=== PATIENT | male | born 1975 | race Two or more races ===

== ENCOUNTER → 2020-09-05 | Outpatient (CLI) | payer OTHER ==
[~2020-09-05] MED LIST: GADOTERATE 7.5 MMOL/15ML VIAL. IVP ONE
--- NOTE | 2020-09-05 12:38 | RAD ---
STUDY: MRI of the right knee with and without contrast INDICATION: Right knee pain. COMPARISON: None. TECHNIQUE: Multiplanar MR imaging of the right knee performed both prior to and after the intravenous administration of 13 cc Clariscan. FINDINGS: Menisci: The medial and lateral menisci are intact. Cruciate ligaments: Intact ACL and PCL. Collateral ligaments: Unremarkable medial and lateral collateral ligaments. Normal IT band and retina cula. Tendons: No focal tear or significant tendinosis. 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 Suspected faint superficial chondrosis along the trochlear groove. Lateral compartment: Intact. Medial compartment: Partial thickness chondrosis along the inner margin of the weightbearing medial f emoral condyle Bones: No acute fracture, focally aggressive marrow signal abnormality, pathologic enhancement or sub chondral marrow edema. Miscellaneous: No mass or abnormal enhancement within the popliteal fossa or periarticular soft tissu es. Normal volume knee joint fluid. IMPRESSION: 1. No acute internal derangement. Intact menisci, cruciate ligaments and collateral ligaments. 2. Mild superficial chondrosis involving the patella adjacent to the median ridge and inner margin o f the weightbearing medial femoral condyle. 3. No mass or pathologic enhancement involving the osseous or soft tissue structures at the knee. Electronically signed by: NOEMI GUTIERREZ MD (09/05/2020 12:36 PM) [id number]
== END ==
LOC: MRI 08:55
PROVIDERS: ATTEND Nurse Practitioner Family
DX: M25.561 Pain in right knee (principal)
CPT/HCPCS: 73723; A9575